=== PATIENT | female | born 1950 | race Caucasian/White ===

== ENCOUNTER 2021-09-22 02:55 | Outpatient (CLI) | payer BC, SELFPAY ==
[2021-09-23 14:15] LABS: Lyme Ab w Rflx to Lyme Confirm Negative (Negative)
[2021-09-24 10:37] LABS: Anaplasma phagocytophilum Negative (Negative); B. miyamotoi PCR Negative (Negative); Babesia divergens/MO-1 Negative (Negative); Babesia duncani Negative (Negative); Babesia microti Negative (Negative); Ehrlichia chaffeensis Negative (Negative); Ehrlichia ewingii/canis Negative (Negative); Ehrlichia muris eauclairensis Negative (Negative)
== END 2021-09-22 02:56 | disposition home or self-care (01) ==
LOC: LOS 02:57
PROVIDERS: Visit Provider Nurse Practitioner Family
DX: W57.XXXA Bitten or stung by nonvenomous insect and other nonvenomous arthropods, initial encounter (principal); T14.8XXA Other injury of unspecified body region, initial encounter
CPT/HCPCS: 36415; 87798; 86618

== ENCOUNTER 2022-01-04 03:30 | Outpatient (CLI) | payer BC, SELFPAY ==
[2022-01-04 12:41] LABS: Hemoglobin A1C 5.7 % (<5.7)
[2022-01-04 12:48] LABS: Anion Gap 4.9 mmol/L (3-11); BUN 20 mg/dL (7-18); CO2 29.1 mmol/L (21.0-32.0); CREATININE 0.7 mg/dL (0.55-1.02); Calcium 9.3 mg/dL (8.5-10.1); Calculated LDL 165 mg/dL (<100); Chloride 102 mmol/L (98-107); Cholesterol 272 mg/dL (<200); Estimated GFR 92.41 (mL/min/1.73m2); Glucose 104 mg/dL (74-106); HDL Cholesterol 91 mg/dL (40-60); Potassium 4.4 mmol/L (3.5-5.1); Sodium 136 mmol/L (136-145); TSH (W/Ref FT4) 1.02 uIU/mL (0.36-3.74); Triglyceride 82 mg/dL (<150)
== END 2022-01-04 03:31 | disposition home or self-care (01) ==
LOC: LOS 03:30
PROVIDERS: PCP Nurse Practitioner Family; Visit Provider Nurse Practitioner Family
DX: E78.5 Hyperlipidemia, unspecified (principal); Z13.1 Encounter for screening for diabetes mellitus
CPT/HCPCS: 36415; 80048; 80061; 83036; 84443

== ENCOUNTER → 2022-01-19 02:05 | Outpatient (CLI) | payer BC, SELFPAY ==
--- NOTE | 2022-01-19 07:00 | DI.MAMMO_ITS ---
Exam(s) MAMMO SCREENING EXAM: MAMMO SCREENING CLINICAL HISTORY: screening,Z12.39 TECHNIQUE: Bilateral full field digital CC and MLO mammographic images were obtained with 3D tomosyn thesis and utilizing computer aided detection (CAD). COMPARISON: Available for comparison. FINDINGS: Masses/Architectural Distortion: None seen. Microcalcifications: No suspicious pleomorphic-type are seen. Skin Thickening/Nipple Retraction: None. IMPRESSION: 1. No significant interval change with no specific features of malignancy noted. 2. Unless there is more urgent need, screening mammography is recommended, as per [employer] guidelines. BI-RADS Category 1 - Negative Breast Density - Category B - Scattered areas of fibroglandular density Breast density category C or D implies that the patient has dense breast tissue. Dense breast tissue is very common and is not abnormal but dense breast tissue can make it harder to find cancer on a ma mmogram. Also, dense breast tissue may increase their breast cancer risk. This information about the result of the mammogram report was provided to the patient to raise their awareness. Use this report when you speak with the patient about their risks for breast cancer, which includes their family hist ory. At that time, you may recommend for more screening tests (Ultrasound or MRI) as they might be us eful based on their risk. A negative radiographic report should not delay biopsy if a dominant or clinically suspicious mass is present. Up to ten percent of cancers are not identified on mammography. A negative report may reinforce clinical impression. Adenosis and dense breasts may obscure an underlying neoplasm. False positive reports average 6 to 10%. Patient will receive a letter notifying them of these results.
== END ==
PROVIDERS: PCP Nurse Practitioner Family; Visit Provider Nurse Practitioner Family
DX: Z12.31 Encounter for screening mammogram for malignant neoplasm of breast (principal)
CPT/HCPCS: 77063; 77067

== ENCOUNTER 2022-03-02 00:57 | Outpatient (CLI) | payer BC, SELFPAY ==
[2022-03-02 08:07] LABS: CREATININE 0.7 mg/dL (0.55-1.02); Estimated GFR 91.83 (mL/min/1.73m2)
[2022-03-02] MEDS: Omnipaque 350 MG/ML 100 ML BTL IJ (08:35)
--- NOTE | 2022-03-02 08:35 | DI.CT_ITS ---
Exam(s) CT NECK W EXAM: CT NECK W CLINICAL HISTORY: globus sensation,r09.89. TECHNIQUE: Imaging Protocol: Axial computed tomography images with coronal and sagittal reformatted images were created and reviewed CONTRAST MATERIAL: Intravenous: Omnipaque 350 Contrast volume:100 ml contrast COMPARISON: No exams were available for comparison FINDINGS: Parotids/submandibular/thyroid gland: Normal. Lymphadenopathy: No enlarged lymph nodes visible.. Carotids/Jugular: No significant stenosis or dissection.. Vertebral arteries normal in diameter. V isualized portions of intracerebral vessels are unremarkable. Soft tissues: Dental work artifact obscures visualization of the mouth and portions of the mandible. Visualized portion of oral phalanx and upper esophagus unremarkable. The epiglottis and vocal cords are within normal limits. Lungs: Images through both lung apices are unremarkable. Bones: Prominent degenerative changes of the cervical spine with osteophytes at the C4-5 through C6-7 levels which are prominent and project anteriorly.. Visualized portions of the brain and orbits: Unremarkable. Sinuses and mastoids: Clear. Visualized portion of aorta shows normal diameter and minimal calcification. IMPRESSION: Degenerative changes of the cervical spine with prominent anteriorly projecting endplate osteophytes. Otherwise normal CT scan of the neck. RADIATION DOSE DELIVERED: 309mGy.cm Total DLP DATA REPOSITORY: All CT scans at this facility are submitted to the National Radiology Data Registry (NRDR) Dose Index Registry (DIR) with the [employer] (ACR). RADIATION OPTIMIZATION: All CT scans at this facility use at least one of these dose optimization te chniques: automated exposure control; mA and/or kV adjustment per patient size (includes targeted exa ms where dose is matched to clinical indication); or iterative reconstruction.
== END 2022-03-02 01:17 ==
PROVIDERS: PCP Nurse Practitioner Family; Visit Provider Registered Nurse Maternal Newborn
DX: R09.89 Other specified symptoms and signs involving the circulatory and respiratory systems (principal); M47.812 Spondylosis without myelopathy or radiculopathy, cervical region
CPT/HCPCS: 70491; 82565; J3490

== ENCOUNTER 2022-03-22 10:43 | Day surgery (SDC) | payer BC, SELFPAY ==
[2022-03-22 10:57] VITALS: BP 137/69; PULSE 64; RESP 16; TEMP 36.7; O2SAT 98
[2022-03-22 11:13] VITALS: BP 137/69; PULSE 64; RESP 16; TEMP 36.7; O2SAT 98
[2022-03-22] MEDS: Lactated Ringers 1,000 ML 80 ML IV (11:15)
--- NOTE | 2022-03-22 11:35 | W.ANESPRE ---
General Info Date of Service Date Performed: 03/22/22 Height: 5 ft 1.5 in Weight: 62.199 kg Body Mass Index (BMI): 25.4 Surgical Procedure: Operation Date: 03/22/22 12:50 Proposed Procedure Side Surgeon p Gastroscopy w/Biopsy Minor Louis MD Meds Allergies and Home Medications Allergies Allergy/AdvReac Type Severity Reaction Status Date / Time No Known Allergies Allergy Verified 03/21/22 11:17 Home Medication Medication Instructions Recorded acetaminophen 500 mg tablet 1,000 mg PO Q6H PRN 12/30/21 (Tylenol Extra Strength) ctqaneik-gyi-yepq-FA-Ca carb-vit K 1 tab PO DAILY 03/20/22 18 mg iron-400 mcg-500 mg tablet (One-A-Day Womens Formula) Current Visit Medications: Current Medications Generic Name Dose Route Start Last Admin Trade Name Freq PRN Reason Stop Dose Admin Ringer's Solution 1,000 mls @ 80 mls/hr 03/22/22 06:00 03/22/22 11:15 IV 03/22/22 23:59 80 mls/hr INFUSION ALEXA Administration IV Miscellaneous Supplies 1 each 03/22/22 06:00 Iv Access IV 03/22/22 23:59 DIRECTED ALEXA Sodium Chloride 0 ml 03/22/22 06:00 Normal Saline Flush 10 Ml Syr IV 03/22/22 23:59 PRN PRN Sodium Chloride 0 ml 03/22/22 06:00 Normal Saline 10 Ml Vial IJ 03/22/22 23:59 DIRECTED PRN Sterile Water 0 ml 03/22/22 06:00 Water,Injection,Sterile 10 Ml Vial IJ 03/22/22 23:59 DIRECTED PRN PFSH Active Problems Active Problems: Problem Status Onset Code Nausea R11.0 Abdominal pain R10.9 Heartburn symptom R12 Diarrhea R19.7 Excessive cerumen in both ear canals H61.23 Globus sensation R09.89 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 Hyperlipidemia E78.5 DDD (degenerative disc disease), lumbar M51.36 Foreign body sensation in throat R09.89 Medical History Medical History Herpes zoster Surgical History Surgical History 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) Tobacco Smoking/Tobacco Use Status: Never Passive smoking exposure: Yes Second hand exposure: Yes Alcohol Alcohol Intake: current Alcohol intake frequency: 0-2 drinks per day Alcohol type: wine Substance Use Substance use: Never Substance use type: does not use Vital Signs and Lab Results Vital Signs Most Recent Vital Signs in EMR: Most Recent Vital Signs Temp Pulse Resp BP Pulse Ox 36.7 C 64 16 137/69 98 03/22/22 11:13 03/22/22 11:13 03/22/22 11:13 03/22/22 11:13 03/22/22 11:13 Lab Results Blood Type / Crossmatch: No Data to Display Complete Blood Count: No Data to Display Complete Metabolic Panel: Creatinine 0.7 mg/dL (0.55-1.02) 03/02/22 07:40 Est GFR (CKD-EPI 2020) 91.83 (mL/min/1.73m2) 03/02/22 07:40 Liver Function Panel: No Data to Display Coagulation Panel: No Data to Display Cardiac Panel: No Data to Display Arterial Blood Gas: No Data to Display Venous Blood Gas: No Data to Display Pancreas Panel: No Data to Display Thyroid Panel: No Data to Display Infectious Disease: No Data to Display Blood Cultures: No Data to Display Toxicology Panel: No Data to Display Anesthesia Assessment and Plan Anesthesia History Personal History: No History of Anesthesia Complications Family History: No Family History of Anesthesia Complications Exercise Tolerance Exercise Tolerance: Metabolic Equivalents>4 Pertinent Negatives Pertinent Negatives: No Symptoms of GERD, No Major Cardiovascular Symptoms or Complaints, No Major Pulmonary Symptoms or Complaints and No History of CVA/TIA Cardiac & Pulmonary Exam Cardiac Exam: Normal S1/S2 Heart Sounds Pulmonary Exam: Clear Bilateral Breath Sounds Implantable Cardiac Device Does patient have a Pacemaker or an ICD?: No Airway Exam Known Difficult Airway: No Mallampati Class: 2 Mouth Opening: Normal (> 3cm) Thyromental Distance: Greater than 3 cm Neck Range of Motion: Full ROM Neck Circumference: Normal Teeth Condition: Normal Dentition ASA Classification ASA Score: ASA 2 Emergency Case?: No NPO Status NPO Status: NPO Clears >2 hours, Solids >8 hours Anesthesia Plan Resuscitation Status: Full Code Anesthesia Technique: General Anesthesia Airway Planned: Natural Airway Monitors Used: Standard Monitors
[2022-03-22 11:36] VITALS: BMI 25.4
--- NOTE | 2022-03-22 11:56 | STOM_PTH ---
PATIENT: Ruth Cox LOC: [facility] U#:[id number] AGE/SX: 72/F ROOM: RE03/22/[address]: Minor Louis : 1950 BED: DIS: 03/22/2022 SPEC #: [id number] RECD: 03/22/22 13:09 STATUS: [facility] #: [id number] DARREN: 03/22/22 11:[address]: Minor Louis DEPT: Surgical Specimen RECD BY: Pretty Reddy ENTERED: 03/22/22 13:10 SP TYPE: STOMACH OTHR DR: Sandra Casas, BINGO FLOATER Tissues: 1 - STOMACH BIOPSY 2 - STOMACH BIOPSY 3 - ESOPHAGUS BIOPSY 4 - ESOPHAGUS BIOPSY 5 - ESOPHAGUS BIOPSY Procedures: GROSS AND MICRO LEVEL 4 Comments: [id number]
[2022-03-22 12:12] VITALS: BP 124/73; PULSE 68; RESP 16; TEMP 36.6; O2SAT 96
--- NOTE | 2022-03-22 12:21 | W.PM.ENDDOP ---
Date of service: 03/22/22 Time of Service: 12:22 Endoscopy Report PROCEDURE DESCRIPTION: Procedures performed: 1.? Esophagogastroduodenoscopy with cold forceps biopsies 2. Snare polypectomy Preoperative diagnosis: Globus sensation Postoperative diagnosis: Moderate (2-3cm) type I sliding hiatal hernia, Gastric Polyps, Normal Cervical Esophagus/hypopharynx Surgeon: Damien Louis Anesthesia: Sharron Indication for procedure: Feels like something is stuck (globus sensation) present for about 6-8 months. No dysphagia. Stuck/foreign body sensation regardless of eating and constantly present throughout the day. Findings: - D3, D2 and D1 - normal - no inflammation or ulcers - Pylorus - patent.? No bile reflux visualized during procedure. No bile present upon entry into the stomach either. - Antrum - visually normal - biopsies taken to rule out incidental H. pylori - Stomach Body - normal visually - Fundus - scattered benign?appearing polyps. The 2 largest were removed with snare technique for confirmation. - Hiatus - Retroflexion showed a moderate?size type I sliding hiatal hernia (2-3 cm slide) - Esophagus - distal esophagus does not look inflamed at al despite small hernia.? No visible inflammation. No stricture or evidence of Archer's.? The mid and proximal esophagus was also normal. I took cold forceps biopsies in the distal and midesophagus and also in the cervical esophagus to assess/rule out the possibility of eosinophilic esophagitis. - Cords/hypopharynx - Normal OVERALL - No visible findings that would explain the sensation in her throat. She has probably had her hernia for a long time and it is not my impression or opinion that the hernia is contributing to the symptoms UNLESS the patient has reflux esophagitis microscopically at the level of the mid and cervical esophagus which then could be part of the problem. Separately, eosinophilic esophagitis could also be related to chronic reflux?induced injury which would be secondary to the hiatal hernia. If biopsies are normal however, usual globulus sensation etiologies should be further explored and ENT referral may be indicated. Doubt this is a motility issue. Surveillance/follow-up recommendations: Pending biopsy results.?? Complications: None Blood loss: Minimal Specimens:? YES Procedure in detail: Written consent was obtained from the patient who was in agreement with the risks, benefits and indications of the procedure.? We went to the endoscopy suite and laid the patient in left lateral decubitus position.? Anesthesia was administered which was tolerated well.? A timeout was performed and when we are all in agreement we began the procedure. A well?lubricated endoscope was advanced without difficulty down the esophagus, into the stomach, through a patent pylorus and into the duodenum.? It was then slowly pulled back with findings noted above. The scope was then removed and the patient tolerated the procedure well and was then taken to the PACU in hemodynamically stable condition.
[2022-03-22 12:34] VITALS: BP 118/66; PULSE 58; RESP 16; TEMP 36.6; O2SAT 97
--- NOTE | 2022-03-22 12:34 | W.ANESPOSTOP ---
Postoperative Evaluation Date, Time and Location Date Performed: 03/22/22 Time Performed: 12:14 Patient Location: Day Surgery Unit Vital Signs Most Recent Imported Vital Signs: Most Recent Vital Signs Temp Pulse Resp BP Pulse Ox 36.6 C 68 16 124/73 96 03/22/22 12:12 03/22/22 12:12 03/22/22 12:12 03/22/22 12:12 03/22/22 12:12 Pain Score Most Recent Pain Score: Most Recent Pain Score Pain Level 0 03/22/22 12:12 Assessment Mental Status: Awake (Alert & Oriented to Patient Baseline) Airway and Respiratory Function: Patent airway with normal (patient baseline) respiratory exam Cardiovascular Function: Hemodynamically Stable Hydration Status: Adequately Hydrated Nausea & Vomiting: No Nausea or Vomiting Pain: Pt. Denies Any Pain Peripheral Nerve Block: Patient did not receive a nerve block
== END 2022-03-22 12:58 | disposition home or self-care (01) ==
PROVIDERS: PCP Nurse Practitioner Family; Visit Provider Student in an Organized Health Care Education/Training Program
PROC: 0DJ68ZZ Inspection of Stomach, Via Natural or Artificial Opening Endoscopic (ICD-10-PCS; CPT 43235; principal; 2022-03-22 12:45)
DX: R19.8 Other specified symptoms and signs involving the digestive system and abdomen (principal); K44.9 Diaphragmatic hernia without obstruction or gangrene; K31.7 Polyp of stomach and duodenum
CPT/HCPCS: 43251; 43239; 88305; J2405; J2704

== ENCOUNTER → 2023-01-22 00:21 | Outpatient (CLI) | payer BC, SELFPAY | PROVIDERS: PCP Nurse Practitioner Family; Visit Provider Nurse Practitioner Family | DX: Z12.31 Encounter for screening mammogram for malignant neoplasm of breast (principal) | CPT/HCPCS: 77063; 77067 ==

== ENCOUNTER 2023-03-01 03:25 | Outpatient (CLI) | payer BC, SELFPAY ==
[2023-03-01 08:50] LABS: Hemoglobin A1C 5.5 % (<5.7)
[2023-03-01 09:23] LABS: Anion Gap 5.5 mmol/L (3-11); BUN 17 mg/dL (7-18); CO2 30.5 mmol/L (21.0-32.0); CREATININE 0.7 mg/dL (0.55-1.02); Calcium 9.5 mg/dL (8.5-10.1); Calculated LDL 159 mg/dL (<100); Chloride 104 mmol/L (98-107); Cholesterol 261 mg/dL (<200); Estimated GFR 91.26 (mL/min/1.73m2); Glucose 110 mg/dL (74-106); HDL Cholesterol 89 mg/dL (40-60); Sodium 140 mmol/L (136-145); Triglyceride 66 mg/dL (<150)
== END 2023-03-01 03:26 | disposition home or self-care (01) ==
LOC: LBO 03:25
PROVIDERS: PCP Nurse Practitioner Family; Visit Provider Nurse Practitioner Family
DX: E78.5 Hyperlipidemia, unspecified (principal); R73.03 Prediabetes
CPT/HCPCS: 36415; 80048; 80061; 83036

== ENCOUNTER 2023-05-27 11:09 | Emergency (ER) | payer BC, SELFPAY ==
[2023-05-27 11:12] VITALS: BP 135/56; PULSE 68; RESP 16; TEMP 36.7; O2SAT 96
--- NOTE | 2023-05-27 11:30 | DI.RAD_ITS ---
Exam(s) XR RIBS RT W PA LAT CHEST EXAM: XR RIBS RT W PA LAT CHEST CLINICAL HISTORY: lateral rib pain TECHNIQUE: 2D digital imaging was performed. COMPARISON: No exams were available for comparison FINDINGS: Total = five views RIBS 3 VIEWS-right There are no obvious acute rib fractures evident. No lytic rib lesions identified. CXR- 2 VIEWS: There is platelike atelectasis in the right lower lobe posterior basal segment. Left lung is clear. No pleural effusions. No pneumothorax. Heart size is normal and there is no significant mediastinal widening. IMPRESSION: 1. No right rib fracture seen. No pneumothorax 2. Platelike atelectasis in the right lower lobe right lung base. DATA REPOSITORY: RADIATION DOSE DELIVERED:
[2023-05-27] MEDS: Lidocaine 5% Patch 1 PATCH TP (11:37)
--- NOTE | 2023-05-27 12:25 | DI.VRAD_ITS ---
PROCEDURE INFORMATION: Exam: XR Right Ribs Exam date and time: 05/27/2023 12:04 PM Age: 73 years old Clinical indication: Injury or trauma; Fall; Blunt trauma (contusions or hematomas); Rib area; Patient HX: Pain right anteror lower ribs TECHNIQUE: Imaging protocol: Radiologic exam of the right ribs. Views: 2 views. COMPARISON: CT NECK W 03/02/2022 8:30 AM FINDINGS: Bones/joints: Normal. Soft tissues: Normal. IMPRESSION: No acute findings. PROCEDURE INFORMATION: Exam: XR Chest Exam date and time: 05/27/2023 12:04 PM Age: 73 years old Clinical indication: Injury or trauma; Fall; Blunt trauma (contusions or hematomas); Rib area; Patient HX: Pain right anteror lower ribs TECHNIQUE: Imaging protocol: Radiologic exam of the chest. Views: 2 views. COMPARISON: CT NECK W 03/02/2022 8:30 AM FINDINGS: Lungs: Mild right basilar atelectasis. Pleural spaces: Unremarkable. No pleural effusion. No pneumothorax. Heart/Mediastinum: Unremarkable. No cardiomegaly. Bones/joints: Unremarkable. IMPRESSION: Mild right basilar atelectasis. Dictated and Authenticated by: Kaylan Alexander MD. Ordering:THO Cummings MD
--- NOTE | 2023-05-27 13:09 | ED.GENADUL_ITS ---
Discharge Plan Disposition Patient Disposition: Home Discharge Details Clinical Impression: Closed rib fracture Primary Care Provider: Sandra Casas ED Provider: Emiliano Reyes Home Meds and New Rx's Prescriptions: New lidocaine 5 % adhesive patch,medicated 1 patch TP DAILY PRN (Reason: pain) Qty: 15 0RF Rx Instructions: leave on most painful area for 12 hrs Changed acetaminophen [Tylenol Extra Strength] 500 mg tablet 1,000 mg PO TID Qty: 0 0RF Discharge Instructions Instructions: Rib Fracture (ED) Additional Instructions: Please use the incentive spirometer every 1-2 hours while awake to encourage appropriate lung function while your rib fracture is healing. Return to the emergency department immediately for any new or significant worsening of symptoms Otherwise please follow-up with your primary care provider for reassessment if not improving Referrals: Sandra Casas, [employer] [Primary Care Provider] - 1 week (As needed for reassessment) Discharge Data Discharge Date/Time-TO BE ENTERED AT DEPARTURE: 05/27/23 13:53 HPI General Mode of arrival: ambulatory . Date/Time Provider Initiated Documentation: 05/27/23 11:21 . Limitations to Documentation: no limitations . Information obtained by: patient and RN notes reviewed . History of Present Illness 73 year old F presents to the emergency department with the chief complaint of Fall with right rib pain, described as moderate, Quality is described as sharp, and is localized to the chest (Right lateral chest wall). Patient started experiencing this day(s) (4) and it has been constant. Immobilization improves symptom(s), Movement worsens symptoms . Patient notes no other symptoms.. Patient did receive the following treatments prior to arrival, other (Acetaminophen) Related Data Home Medications Medication Instructions Recorded Confirmed acetaminophen 500 mg tablet 1,000 mg (2 x 500 mg) PO TID #0 05/27/23 05/27/23 (Tylenol Extra Strength) tabs lidocaine 5 % topical patch 1 patch topical DAILY PRN pain #15 05/27/23 ea Previous Rx's Medication Instructions Recorded acetaminophen 500 mg tablet 1,000 mg (2 x 500 mg) PO TID #0 05/27/23 (Tylenol Extra Strength) tabs lidocaine 5 % topical patch 1 patch topical DAILY PRN pain #15 05/27/23 ea Allergies Allergy/AdvReac Type Severity Reaction Status Date / Time No Known Allergies Allergy Verified 05/27/23 11:17 General Stated Complaint: Chest/Rib TRUONG: 4 Review of Systems Constitutional Constitutional: Denies fever(s) and Denies headache(s) ENT Ears, Nose, Mouth, and Throat: Denies headache(s) and Denies neck pain Cardiovascular Cardiovascular: Denies chest pain and Denies dyspnea Respiratory Respiratory: Reports as per HPI, Reports pain on inspiration, Reports pain with cough, Denies dyspnea and Reports other (Chest wall pain) Musculoskeletal Musculoskeletal: Reports as per HPI, Denies back pain and Denies neck pain Neurologic Neurologic: Denies headache(s) Exam Const General: cooperative, no acute distress and not ill appearing Orientation: alert, awake and oriented x3 HENMT Mouth: moist mucous membranes Chest Chest: normal inspection of the chest, no crepitus, localized rib tenderness with anteroposterior compression right mid-axillary line involving the 6th rib, involving the 7th rib, involving the 8th rib and involving the 9th rib and tenderness rib mid-axillary line involving the 6th rib, involving the 7th rib, involving the 8th rib and involving the 9th rib Resp Effort & Inspection: normal respiratory effort, able to speak in complete sentences and no respiratory distress Auscultation: clear to auscultation bilaterally and diminished lung sounds bilaterally throughout Cardio Rate: regular rate Rhythm: regular rhythm Heart Sounds: S1 normal and S2 normal GI Inspection: normal to inspection and no abdominal wall ecchymosis Palpation: soft, not firm, no guarding and nontender Skin General skin exam: no rashes or lesions noted Neuro General: patient alert, patient awake, patient oriented x3, moves all extremities and no focal motor deficits Sensory Exam: no sensory deficits noted Course Vital Signs Vital signs: Vital Signs Temperature 36.7 C 05/27/23 11:12 Pulse 68 05/27/23 11:12 Respiratory Rate 16 05/27/23 11:12 Blood Pressure 135/56 L 05/27/23 11:12 Pulse Oximetry 96 05/27/23 11:12 Temperature 36.7 C 05/27/23 11:12 Temperature Source Skin 05/27/23 11:12 Pulse 68 05/27/23 11:12 Respiratory Rate 16 05/27/23 11:12 Respiratory Effort Normal, Non-Labored 05/27/23 11:31 Respiratory Depth Normal 05/27/23 11:31 Respiratory Pattern Normal 05/27/23 11:31 Blood Pressure 135/56 L 05/27/23 11:12 Blood Pressure Position Sitting 05/27/23 11:12 Pulse Oximetry 96 05/27/23 11:12 Oxygen Delivery Method Room Air 05/27/23 11:12 Oxygen Flow Rate 0 05/27/23 11:12 Pain Level 10 05/27/23 11:31 Comment using ice and taking 2 extra strength tylenol Q6H 05/27/23 11:12 Medical Decision Making Patient presenting to the emergency department for chief complaint of right pain secondary to fall. Denies any other injury or trauma, clear but diminished lung sounds on the right which I feel is more secondary to pain with deep breathing compared to absence of sounds. Physical exam does show tenderness to the mid axillary line of the mid ribs exam is otherwise noncontributory. Will perform radiological imaging. Pending results will give patient lidocaine patch. Reviewed radiological imaging that was read as no acute findings but I do question possible nondisplaced rib fractures of ribs 6 and 7 on image #3. These are subtle findings and note was placed in the system pending final radiology read. Patient reassessed and did state improvement with lidocaine patch so will prescribe those for outpatient use along with continued use of [id number] medications. After discussion of diagnosis and plan of care patient has no further needs, questions, or concerns and states clear understanding to return to the emergency department for any worsening symptoms. This documentation was generated using [employer] dictation system, please disregard any oddities of phrase or misspellings. Imaging Data Radiologic Study: Imaging: X-Ray Radiologist's impression: Exam(s) PROCEDURE INFORMATION: Exam: XR Right Ribs Exam date and time: 05/27/2023 12:04 PM Age: 73 years old Clinical indication: Injury or trauma; Fall; Blunt trauma (contusions or hematomas); Rib area; Patient HX: Pain right anteror lower ribs TECHNIQUE: Imaging protocol: Radiologic exam of the right ribs. Views: 2 views. COMPARISON: CT NECK W 03/02/2022 8:30 AM FINDINGS: Bones/joints: Normal. Soft tissues: Normal. IMPRESSION: No acute findings. PROCEDURE INFORMATION: Exam: XR Chest Exam date and time: 05/27/2023 12:04 PM Age: 73 years old Clinical indication: Injury or trauma; Fall; Blunt trauma (contusions or hematomas); Rib area; Patient HX: Pain right anteror lower ribs TECHNIQUE: Imaging protocol: Radiologic exam of the chest. Views: 2 views. COMPARISON: CT NECK W 03/02/2022 8:30 AM FINDINGS: Lungs: Mild right basilar atelectasis. Pleural spaces: Unremarkable. No pleural effusion. No pneumothorax. Heart/Mediastinum: Unremarkable. No cardiomegaly. Bones/joints: Unremarkable. IMPRESSION: Mild right basilar atelectasis. Dictated and Authenticated by: Kaylan Alexanedr MD. 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 Brother , 69 No problems noted. Brother No problems noted. Brother No problems noted. Son Ulcerative colitis Son No problems noted. Maternal Grandfather , 75 Diabetes Paternal Grandfather , 80+ No problems noted. Maternal Grandmother , 91 No problems noted. Maternal Grandmother , 80+ No problems noted. Social History Smoking/Tobacco Use Status: Never Second Hand Exposure: Yes Smoking risk assessment performed?: Yes Alcohol Intake: current Alcohol Intake frequency: 0-2 drinks per day Alcohol type: wine Drug use: Never Substance use type: does not use Caregiver/Support person: No Household members: spouse Housing: house Communication Needs: Corrective Lenses Do you need help understanding health information?: Never Pets and animals: Yes Pets and animals: cat(s) Sexually active: No Do you think of yourself as: straight/heterosexual Current gender identity: female What is your relationship status?: How often do you talk on the phone with friends or family?: three or more times per week How often do you get together with friends or relatives?: once per week How often do you attend synagogue or methodist services?: 4 or more times per year Do you belong to any clubs or organized social groups?: yes Panel score (0-1 are the most socially isolated patients): 4 What type of physical activity do you participate in: walking Duration: 30-45 minutes/day Frequency: 5-6 times per week Brigid/Advent: Tenriism Special brigid needs: No Seatbelt use: always Drive intox or ride w/intox delivery driver assistant: No Do you feel safe at home: No Do you feel safe in your relationship?: No
== END 2023-05-27 13:53 | disposition home or self-care (01) ==
PROVIDERS: Emergency Provider Nurse Practitioner Family; PCP Nurse Practitioner Family
DX: S22.41XA Multiple fractures of ribs, right side, initial encounter for closed fracture (principal); E78.5 Hyperlipidemia, unspecified; W01.0XXA Fall on same level from slipping, tripping and stumbling without subsequent striking against object, initial encounter
CPT/HCPCS: 99283; 71046; 71100

== ENCOUNTER 2024-12-18 04:04 | Outpatient (CLI) | payer BC, SELFPAY ==
[2024-12-18 12:06] LABS: HCT 46.4 % (36.0-46.0); HGB 15.6 g/dL (11.2-15.7); MCH 32.2 pg (27.0-33.0); MCHC 33.6 % (32.0-36.0); MCV 96 fL (80-95); MPV 9.1 fL (8.0-11.0); Platelet Count 281 10^3/uL (130-400); RBC 4.85 10^6/uL (3.93-5.22); RDW 11.9 % (11.7-14.6); RDW-SD 41.7 fL; WBC 6.21 10^3/uL (4.4-10.8)
[2024-12-18 12:39] LABS: Anion Gap 10.4 mmol/L (3-11); BUN 17 mg/dL (7-18); CO2 28.6 mmol/L (21.0-32.0); Calcium 9.5 mg/dL (8.5-10.1); Calculated LDL 177 mg/dL (<100); Chloride 101 mmol/L (98-107); Cholesterol 279 mg/dL (<200); Estimated GFR 94.13 (mL/min/1.73m2); Glucose 101 mg/dL (74-106); HDL Cholesterol 83 mg/dL (>or=50); Potassium 4.0 mmol/L (3.5-5.1); Sodium 140 mmol/L (136-145); Triglyceride 96 mg/dL (<150)
== END 2024-12-18 04:05 | disposition home or self-care (01) ==
LOC: LBO 04:04
PROVIDERS: PCP Nurse Practitioner Family; Visit Provider Nurse Practitioner Family
DX: E78.5 Hyperlipidemia, unspecified (principal)
CPT/HCPCS: 36415; 80048; 80061; 85027

== ENCOUNTER 2024-12-18 04:34 | Outpatient (CLI) | payer BC, SELFPAY ==
--- NOTE | 2024-12-18 06:45 | DI.DEXA_ITS ---
Exam(s) XR DEXA BONE DENSITY W/WO HO EXAM: XR DEXA BONE DENSITY W/WO HO CLINICAL HISTORY: postmenopausal status bone density screening,z78.0 TECHNIQUE: COMPARISON: No exams were available for comparison FINDINGS: Lateral Spine Image: Unremarkable. No compression deformities identified. Left hip: Total T-Score: -0.9 Total Z-Score: 0.9 T- and Z-scores: There is no evidence of osteoporosis. Lumbar Spine: Total T-Score: 0.7 Total Z-Score: 3.1 T- and Z-scores: Within normal limits. IMPRESSION: No evidence of osteoporosis.
--- NOTE | 2024-12-18 11:27 | DI.MAMMO_ITS ---
Exam(s) MAMMO SCREENING EXAM: MAMMO SCREENING CLINICAL HISTORY: screening,Z12.39 TECHNIQUE: Bilateral full field digital CC and MLO mammographic images were obtained with 3D tomosynthesis and utilizing computer aided detection (CAD). COMPARISON: Comparison is made with prior examinations. FINDINGS: Masses/Architectural Distortion: No suspicious masses or areas of architectural distortion are present. Microcalcifications: No suspicious pleomorphic-type are seen. Skin Thickening/Nipple Retraction: None. IMPRESSION: 1. No significant interval change with no specific features of malignancy noted. 2. Unless there is more urgent need, screening mammography is recommended, as per [employer] guidelines. BI-RADS Category 1 - Negative Breast Density - Category B - There are scattered areas of fibroglandular density. Breast density Category C or D implies that the patient has dense breast tissue. Dense breast tissue can make it harder to find cancer on a mammogram. Dense breast tissue is also associated with an increased risk of breast cancer. This information about the result of the mammogram report was provided to the patient to raise their awareness. Use this report when you speak with the patient about their risks for breast cancer, which includes their family history. At that time, you may recommend additional screening tests (Ultrasound or MRI) as these tests may add significant information. A negative radiographic report should not delay biopsy if a dominant or clinically suspicious mass is present. Up to ten percent of cancers are not identified on mammography. A negative report may reinforce clinical impression. Adenosis and dense breasts may obscure an underlying neoplasm. False positive reports average 6 to 10%. Patient will receive a letter notifying them of these results.
== END 2024-12-18 04:54 ==
LOC: DI 04:35
PROVIDERS: PCP Nurse Practitioner Family; Visit Provider Nurse Practitioner Family
DX: Z78.0 Asymptomatic menopausal state (principal); Z12.31 Encounter for screening mammogram for malignant neoplasm of breast; Z13.820 Encounter for screening for osteoporosis
CPT/HCPCS: 77063; 77067; 77080